=== PATIENT | female | born 1965 | race Caucasian/White ===

== ENCOUNTER 2019-12-08 06:13 | Day surgery (SDC) | payer BC ==
[2019-12-04 12:15] VITALS: BMI 33.0
--- OUTSIDE RECORDS SUMMARY | 2019-12-08 06:18 | XMS ---
:1965 Author Organization [facility] Care Team Providers Name Role Phone Dot Vallejo MD Unavailable Unavailable Rafael Rizzo MD Unavailable Unavailable Abril Bright Unavailable Unavailable Misty Ortiz NP Unavailable Unavailable April, Unavailable Unavailable EhsanJonna S Unavailable Unavailable Ehsan, S Unavailable Unavailable Ehsan, S Unavailable Unavailable Ehsan, S Unavailable Unavailable Ehsan, S Unavailable Unavailable Ehsan, S Unavailable Unavailable Ehsan, S Unavailable Unavailable Ehsan, S Unavailable Unavailable Lovig Unavailable Unavailable Lovig Unavailable Unavailable Lovig Unavailable Unavailable Lovig Unavailable Unavailable Lovig Unavailable Unavailable Lovig Unavailable Unavailable Lovig Unavailable Unavailable Lovig Unavailable Unavailable JOSSELYN BATEMAN Unavailable Unavailable MD Bob Unavailable Unavailable Re-disclosure Warning The records that you are about to access may contain information from federally- assisted alcohol or drug abuse programs. If such information is present, then the following federally mandated warning applies: This information has been disclosed to you from records protected by federal confidentiality rules (42 CFR part 2). The federal rules prohibit you from making any further disclosure of this information unless further disclosure is expressly permitted by the written consent of the person to whom it pertains or as otherwise permitted by 42 CFR part 2. A general authorization for the release of medical or other information is NOT sufficient for this purpose. The Federal rules restrict any use of the information to criminally investigate or prosecute any alcohol or drug abuse patient.The records that you are about to access may contain highly sensitive health information, the redisclosure of which is protected by Article 27-F of the [facility] Public Health law. If you continue you may haveaccess to information: Regarding HIV / AIDS; Provided by facilities licensed or operated by the [facility] Office of Mental Health; or Provided by the [facility] Office for People With Developmental Disabilities. If such information is present, then the following [facility] mandated warning applies: This information has been disclosed to you from confidential records which are protected by state law. State law prohibits you from making any further disclosure of this information without the specific written consent of the person to whom it pertains, or as otherwise permitted by law. Any unauthorized further disclosure in violation of state law may result in a fine or chcf sentence or both. A general authorization for the release of medical or other information is NOT sufficient authorization for further disclosure. Family History Family Member Family Member Family Member Date of Description Data Source(s) Name Gender Status Status Unknown Female Problem MEDENT ([facility] ) Encounters Encounter Providers Location Date Indications Data Source(s ) Outpatient Attender: Jonna 10/10/2019 [facility] BREAST [facility] Saji Moser 08:30:00 AM [facility] PROLIA - BREAST CA Outpatient Attender: Martine 09/04/2019 09:00:00 AM TRANSFLA P Jcarlos Rojas MD [facility] TRANSFLAP Outpatient Attender: Martine 08/30/2019 10:11:00 BREAST CANC ER Jcarlos Rojas MD [facility] BREAST CANCER Outpatient Attender: FRANSICO 07/07/2019 06:00:00 Z01.84 [facility] JOSSELYN TimmonsAdmitter: Critical access hospital JOSSELYN BATEMAN Corporatio n IainReferrer: JOSSELYN BATEMAN Z01.84 Outpatient Attender: Radha 04/14/2019 THYROIDECTOMY [place] 08:04:00 AM EST F/U,THYROID CA. Hosp ital THYROIDECTOMY F/U,THYROID CA. Outpatient Attender: Jonna 03/29/2019 [facility] BREAST CA Mike Moser 07:20:00 AM EST OSTEOPOROSIS Hospita l [facility] BREAST CA OSTEOPOROSIS U Attender: Anila April 1003 12/01/2018 07:46:00 AM [facility] ([facility] EDT [facility] ) U Attender: Anila April 1017 11/30/2018 06:00:00 PM CARELOGIC ([facility] EDT - 11/30/2018 06:45:00 [facility]) PM EDT Patient admitted. Outpatient Attender: Misty 11/12/2018 BREAST/THYROID CA NOT Jcarlos Ortiz VISUAL ASSOCIATE 08:49:00 AM EDT DIAB 172LBS Hospit al BREAST/THYROID CA NOT DIAB 172LBS Outpatient Attender: Dot 09/26/2018 09:30:00 THYROID CA NCER Jcarlos Vallejo MD AM EDT - 09/27/2018 [facility] 10:05:00 AM EDT THYROID CANCER Patient discharged. Outpatient Attender: Rafael 08/31/2018 08:30:00 GERD WITHO UT Jcarlos Rizzo MD AM EDT - 08/31/2018 ESOPHAGITIS [facility] 06:56:00 AM EDT SUPERFICIAL GASTR GERD WITHOUT ESOPHAGITIS CHRONIC SUPERFI CIAL GASTR U Attender: Abril 101705/08/2016 12:34:00 PM CARELOGIC ([facility] [place] EST - 05/13/2018 09:03:00 [facility]) AM EDT Insurance Providers Payer name Policy type / Policy ID Covered Covered democrat's Policy Plan Coverage type democrat ID relationship to [employer] Information hughes BC PPO [id number] SP [id number] Alpha Blue Self Cross/Blue Shield BLUE CROSS [id number] PT [id number] [place] BLUE CROSS [id number] PT [id number] MONTE BLUE CROSS [id number] PT [id number] MONTE BLUE CROSS [id number] PT [id number] MONTE BLUE CROSS [id number] PT [id number] MONTE BC/BS Medigap Part B [id number] Self MVF [id number] Bluecard Program [facility] [id number] Self [id number] Health Plan Maintenance Organization (HMO) Problems, Conditions, and Diagnoses Code Display Name Description Problem Type Effective Data Sour ce(s) Dates .52 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 10/10/[address] [place] mutation 08:16:00 AM Hospital EDT G62.89 Other specified G62.89 Diagnosis 10/10/2019 [place] polyneuropathies 08:16:00 AM Hospita l EDT C73 Malignant neoplasm of C73 Diagnosis 10/10/2019 [place] thyroid gland 08:16:00 AM Hospital EDT Z85.3 Personal history of Z85.3 Diagnosis 10/10/2019 [place] malignant neoplasm of 08:16:00 AM Ho spital breast EDT M81.0 Age-related M81.0 Diagnosis 10/10/2019 [place] osteoporosis without 08:16:00 AM Hos pital current pathological EDT fracture Z80.3 Family history of Z80.3 Diagnosis 09/04/2019 [place] malignant neoplasm of 09:00:00 AM Ho spital breast EDT 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 09/04/2019 [place] bilateral breasts and 09:00:00 AM Ho spital nipples EDT Z98.890 Other specified Z98.890 Diagnosis 09/04/2019 [place] postprocedural states 09:00:00 AM Ho spital EDT N64.4 Mastodynia N64.4 Diagnosis 09/04/2019 [place] 09:00:00 AM Hospital EDT D24.1 Benign neoplasm of D24.1 Diagnosis 09/04/2019 [place] right breast 09:00:00 AM Hospital EDT R93.7 Abnormal findings on R93.7 Diagnosis 08/30/2019 [place] diagnostic imaging of 10:11:00 AM Ho spital other parts of EDT musculoskeletal system Z01.84 Encounter for ENCOUNTER FOR Diagnosis 07/07/2019 [facility] antibody response ANTIBODY 06:00:00 AM [facility] Health examination RESPONSE EDT [facility] EXAMINATION [facility] Z85.850 Personal history of Z85.850 Diagnosis 04/14/2019 [place] malignant neoplasm of 08:04:00 AM Ho spital thyroid EST E89.0 Postprocedural E89.0 Diagnosis 04/14/2019 [place] hypothy[place] 08:04:00 AM Hospital EST Z08 Encounter for Z08 Diagnosis 04/14/2019 [place] follow-up examination 08:04:00 AM Ho spital after completed EST treatment for malignant neoplasm Z79.01 family lawyer (current) Z79.01 Diagnosis 03/29/2019 [place] use of anticoagulants 07:20:00 AM Ho spital EST Z79.811 snf (current) Z79.811 Diagnosis 03/29/2019 [place] use of aromatase 07:20:00 AM Hospita l inhibitors EST F41.1 Generalized anxiety Generalized Diagnosis 11/30/2018 [facility] disorder anxiety 06:00:00 PM (Family disorder EDT Services [facility]) F43.22 Adjustment disorder Adjustment Diagnosis 11/30/2018 [facility] with anxiety disorder with 06:00:00 PM (Family anxiety EDT Services [facility]) Surgeries/Procedures Procedure Description Date Indications Data Source(s) [id number] 15-30 Min Brief Therapy 09/18/2019 [facility] (Family 12:00:00 AM EDT [facility]) [address] 15-30 Min Brief Therapy 09/18/2019 [facility] (Family 12:00:00 AM EDT [facility]) [address] 45-50 Min Regular 08/21/2019 [facility] (Family Therapy 12:00:00 AM EDT [facility]) [address] 45-50 Min Regular 08/21/2019 [facility] (Family Therapy 12:00:00 AM EDT [facility]) [address] 45-50 Min Regular 08/07/2019 CAREL[facility] (Family Therapy 12:00:00 AM EDT [facility]) [address] 45-50 Min Regular 08/07/2019 CAREL[facility] (Family Therapy 12:00:00 AM [facility]T [facility]) [address] 45-50 Min Regular 07/31/2019 CAREL[facility] (Family Therapy 12:00:00 AM EDT [facility]) [address] 45-50 Min Regular 07/31/2019 CAREL[facility] (Family Therapy 12:00:00 AM EDT [facility]) [address] 45-50 Min Regular 07/17/2019 CAREL[facility] (Family Therapy 12:00:00 AM EDT [facility]) [address] 45-50 Min Regular 07/17/2019 CAREL[facility] (Family Therapy 12:00:00 AM EDT [facility]) [address] 45-50 Min Regular 07/10/2019 CARELOG[facility] (Family Therapy 12:00:00 AM EDT [facility]) [address] 45-50 Min Regular 07/10/2019 CARELOGIC (Family Therapy 12:00:00 AM EDT [facility]) [address] Initial Assessment 11/30/2018 CAREL[facility] (Family 12:00:00 AM EDT [facility]) [address] Initial Assessment 11/30/2018 CAREL[facility] (Family 12:00:00 AM EDT Services [facility]) Results ID Date Data Source [id number] 12/04/2019 12:33:00 PM EDT [facility] Name Value Range Interpretation Description Data Sup porting Code Source(s) Document(s ) SARS [facility] coronavirus 2 RNA This lab was ordered by SALMA stark [facility] and reported by [facility]. Procedure
[2019-12-08] MEDS ORDERED: MIDAZOLAM HCL 2 MG/2 ML SINGLE DOSE VIAL ONE (07:10)
[2019-12-08] MEDS ORDERED: EPINEPHrine/PF 1 MG/1 ML (1:1,000) AMPULE ONE ×2 (07:18→08:06)
[2019-12-08] MEDS ORDERED: BACITRACIN 3.5 GM OPTHALMIC OINT TUBE ONE (07:18)
[2019-12-08] MEDS ORDERED: LIDOCAINE HCL 1%, 10 MG/ML (20ML VIAL) ONE ×2 (07:18→08:06)
[2019-12-08] MEDS ORDERED: PROPOFOL 20 ML ONE ×2 (07:19)
[2019-12-08] MEDS ORDERED: SUCCINYLCHOLINE CHLORIDE 200 MG/10 ML SYRINGE ONE (07:19)
[2019-12-08] MEDS ORDERED: LIDOCAINE HCL/PF 2% SDV 5ML VIAL ONE (07:20)
[2019-12-08] MEDS ORDERED: ROCURONIUM BROMIDE 50 MG/5 ML VIAL ONE (07:23)
[2019-12-08] MEDS ORDERED: SCOPOLAMINE HYDROBROMIDE 1 PATCH PATCH.TD72 ONE (07:54)
[2019-12-08] MEDS ORDERED: ceFAZolin SODIUM 1 GM VIAL ONE (08:18)
[2019-12-08] MEDS ORDERED: ceFAZolin SODIUM 1 GM VIAL IVPB ONE (08:19)
[2019-12-08] MEDS ORDERED: DEXAMETHASONE SOD PHOSPHATE 4 MG/1 ML VIAL ONE (08:22)
[2019-12-08] MEDS ORDERED: HYDROmorphone HCL/PF 1 MG/ML VIAL ONE ×2 (08:26→10:09)
[2019-12-08] MEDS ORDERED: ePHEDrine SULFATE 50 MG/1 ML AMPULE ONE (08:34)
[2019-12-08] MEDS ORDERED: BACITRACIN 15 GM TUBE TOPICAL OINTMENT ONE (10:01)
[2019-12-08] MEDS ORDERED: NEOSTIGMINE METHYLSULFATE 0.5 MG/ML - 10 ML MDV ONE (10:51)
[2019-12-08] MEDS ORDERED: GLYCOPYRROLATE 0.2 MG/1 ML VIAL ONE (10:54)
[2019-12-08] MEDS ORDERED: ONDANSETRON 4 MG/2 ML VIAL ONE (11:38)
[2019-12-08] MEDS ORDERED: BACITRACIN 15 GM TUBE TOPICAL OINTMENT TP ONE (11:39)
[2019-12-08] MEDS ORDERED: ONDANSETRON 4 MG/2 ML VIAL IVPB PRN (12:16)
[2019-12-08] MEDS ORDERED: oxyCODONE HCL 5 MG TABLET PO PRN ×4 (12:16)
[2019-12-08] MEDS ORDERED: ONDANSETRON 4 MG/2 ML VIAL IVPUSH PRN (12:16)
[2019-12-08] MEDS ORDERED: HYDROmorphone HCL 0.5 MG/0.5 ML SYRINGE ONE ×2 (12:17→12:40)
[2019-12-08] MEDS ORDERED: HYDROmorphone HCL CARPU-JECT 2 MG/1 ML DISP.SYRIN IVPUSH ONE ×3 (12:18→13:39)
--- NOTE | 2019-12-08 12:20 | OP ---
Operative Note - Note: Operative Date: 12/08/19 Pre-Operative Diagnosis: deformities of bilateral breast reconstructions with donor side scars Operation: bilateral revisions of breast reconstructions Post-Operative Diagnosis: Same as Pre-op Surgeon: Adelfo Mahajan Anesthesia: General Drains & Tubes with Location: YESSY bilateral breasts Operative Report Dictated: Yes
[2019-12-08] MEDS ORDERED: LACTATED RINGERS SOLUTION 1,000 ML IV SCH ×2 (12:30)
--- NOTE | 2019-12-08 13:53 | OP ---
DATE OF OPERATION: 12/08/2019 TITLE OF PROCEDURE: Bilateral revision of latissimus dorsi reconstructed breasts with bilateral liposuction and excision of donor site pedicle. ATTENDING SURGEON: Adelfo Mahajan MD CHILD NUTRITION MANAGER: None. ANESTHESIA: General endotracheal anesthesia. PREOPERATIVE DIAGNOSIS: Breast cancer status post bilateral mastectomy with deformities and asymmetry of both breasts. DESCRIPTION OF PROCEDURE: The patient was marked in the holding area, awake and aware of all incisions, resulting scars. Risks, benefits, alternatives to the procedure were thoroughly discussed as well as the limitations of the procedure and the impossibility of perfect symmetry. She fully understands this and is given 2 g of Ancef preoperatively. She is brought to the operating room and placed in a supine position. She is prepped and draped in standard surgical fashion. Duron catheter has been placed, which is removed at the end of the procedure. Position is carefully checked by the entire operative team, surgical anesthesia, and nursing. All appropriate padding is used. Sequential compression stockings are applied and turned on. After being prepped and draped, timeout was called. Patient, procedure side, sites were verified. At this point attention was first directed toward the right breast which the flap is inferiorly malpositioned. An incision is made along the pre-existing mastectomy scar as well as along a vertical incision that had been previously made, continued medially along the planned new inframammary fold for exposure. The inferior mastectomy flap is then re-elevated to the chest wall. The latissimus dorsi myocutaneous flap is able to be dissected from the mastectomy flap, and at the level of the chest wall a pre-existing seroma cavity is entered. There is no existing seroma; however, this is a potential space that is opened. The flap is freely mobile in this deep plane where the seroma capsule is then excised in order to allow for flap adherence to the chest wall. The inframammary fold is then marked on the patient's chest wall, transposed from the preoperative markings to correspond with the contralateral side. At this point, using 0 PDS suture, a series of interrupted sutures from chest wall to the inferior surface of the latissimus dorsi flap are made to secure its position along the chest wall. A size 10 flat YESSY drain is brought out the lateral extent of the incision and placed in the pre-existing seroma cavity, secured with a 2-0 silk drain suture. Slight excess of inferior flap is excised on the right in order to match the volume on the left. The inferior mastectomy skin is then likewise tacked to the chest wall with a series of interrupted 0 PDS sutures recreating a smooth curvilinear inframammary fold. The patient is brought to a seated upright position to assess for symmetry of the inframammary folds, which is assured. The skin is tailor tacked and appears perfectly viable. A decision is then made that the vast bulk of the axillary and lateral back tissue that the patient was complaining of is fat, and the first step of management will be liposuction. At this point, the bilateral lateral chest and back and axillary fat is infiltrated with wetting solution. The wetting solution is 1 L of lactated Ringer's with 1 ampule of 1:100,000 epinephrine and 20 mL of 1% lidocaine plain. A total of 900 mL of wetting solution is infiltrated into each of these aforementioned areas, and time is given for the wetting solution to work while a closure is performed on the right side incisions. The right side incisions were closed with a series of interrupted buried deep dermal 3-0 Monocryl suture, followed by a running mid-dermal 3-0 V-Loc suture, followed by several 5-0 nylon sutures where necessary. The 2 points of the right-angle flaps are re-inset into their pre-existing kletsel dehe wintun sites. All tissues appear viable. After this is completed, liposuction is then performed using a combination of traditional and power-assisted liposuction with a 4-mm cannula. The lipoaspirates are on the right side 700 mL and on the left side 750 mL. With the patient then again brought to a seated upright position, it is determined that there remains axillary lateral chest and back skin laxity that needs to be resected. On the left side, continuation of the lateral portion of the mastectomy scar is marked, and an elliptical pattern of skin is excised. This is skin and subcutaneous fat only. On the left breast lateral border of the latissimus dorsi, myocutaneous flap is identified, and as this is slightly frazier than the right even despite liposuction, a partial excision of this anterolateral portion of the latissimus dorsi flap is resected. Hemostasis is achieved. The mastectomy flaps superiorly and inferiorly are slightly elevated to expose this lateral border of the left latissimus dorsi myocutaneous flap where the flap modification is able to be performed, and the closure is able to be performed primarily. As this same incision continues posteriorly, an ellipse of skin and subcutaneous fat is excised. The closure is then performed over a size 10 flat YESSY drain brought out through the lateral extent of the incision, secured with a 2-0 silk drain suture. The closure of this elliptical skin pattern is made with a series of interrupted buried Dominick's layer 2-0 Vicryl suture, followed by a series of interrupted buried deep dermal 3-0 Monocryl, followed by a running mid-dermal 3-0 Monocryl V-Loc suture. With the patient brought to a seated upright position, it is determined that there is slightly less but still present residual skin on the right side; however, no further flap modification is required. The skin is patterned, and excision is performed of this skin to reduce the redundancy. Closure is then likewise performed with a series of interrupted buried 2-0 Vicryl Dominick's layer sutures, followed by a series of interrupted buried deep dermal 3-0 Monocryl suture, followed by a running mid-dermal V-Loc suture. All tissues appearing viable, there is excellent symmetry of size, shape, contour, and position of the flaps. Incisions are dressed with 1/2-inch Steri-Strips, 4 x 4 gauze, ABD gauze. Biopatches are placed on the drains. The drains were placed to bulb suction. Only thin serosanguineous fluid is obtained into the drain as appropriate for having done liposuction in these areas, and an extra-large breast binder is then applied. Patient awoken from anesthesia, transferred to recovery without complication. Handy [id number]
[2019-12-08 16:26] VITALS: TEMP 99
[2019-12-08 16:39] VITALS: BP 118/66; PULSE 90
== END 2019-12-08 14:30 | disposition home or self-care (01) ==
LOC: FASU 06:13
PROVIDERS: ATTEND Plastic Surgery
PROC: 0JD73ZZ Extraction of Back Subcutaneous Tissue and Fascia, Percutaneous Approach (ICD-10-PCS; 2019-12-08)
PROC: 0JD63ZZ Extraction of Chest Subcutaneous Tissue and Fascia, Percutaneous Approach (ICD-10-PCS; 2019-12-08)
PROC: 0KXG0Z5 Transfer Left Trunk Muscle, Latissimus Dorsi Myocutaneous Flap, Open Approach (ICD-10-PCS; principal; 2019-12-08 08:00)
PROC: 0KXF0Z5 Transfer Right Trunk Muscle, Latissimus Dorsi Myocutaneous Flap, Open Approach (ICD-10-PCS; 2019-12-08 08:00)
DX: C50.911 Malignant neoplasm of unspecified site of right female breast (principal); C50.912 Malignant neoplasm of unspecified site of left female breast; Z90.13 Acquired absence of bilateral breasts and nipples; N65.1 Disproportion of reconstructed breast; N65.0 Deformity of reconstructed breast
CPT/HCPCS: 94760